=== PATIENT | male | born 1955 | race Hispanic/Latino ===

== ENCOUNTER 2022-08-06 01:47 | Emergency (ER) | payer MEDICARE, OTHER ==
[~2022-08-06] VITALS: Ht 182.9 cm; Wt 133.8 kg
[2022-08-06 02:14] VITALS: BP 135/89
[2022-08-06 02:19] LABS: APPEARANCE,URINE CLEAR (CLEAR); BILIRUBIN,URINE NEGATIVE (NEGATIVE); COLOR,URINE LIGHT-YELLOW (YELLOW); GLUCOSE, URINE (UA) NEGATIVE (NEGATIVE); KETONES,URINE NEGATIVE (NEGATIVE); LEUKOCYTE ESTERASE ,URINE 75 Leu/uL (NEGATIVE); NITRATE,URINE NEGATIVE (NEGATIVE); OCCULT BLOOD,URINE LARGE (NEGATIVE); PH,URINE 5.5 (5.0-8.0); PROTEIN,URINE NEGATIVE (NEGATIVE); UROBILINOGEN,URINE 0.2 mg/dL (0.2-1.0)
[2022-08-06 02:28] LABS: MUCUS,URINE RARE LPF (None Seen); WBC,URINE 26-50 /HPF (0-1)
[2022-08-06] MEDS ORDERED: CEFTRIAXONE 1G VIAL IVPB ONE (03:00)
[2022-08-06] MEDS ORDERED: CEFU500T67 PO (03:03)
== END 2022-08-06 03:24 | disposition home or self-care (01) ==
LOC: EDH 01:47
DX: N39.0 Urinary tract infection, site not specified (principal); R33.9 Retention of urine, unspecified; E11.9 Type 2 diabetes mellitus without complications; E78.00 Pure hypercholesterolemia, unspecified; I10 Essential (primary) hypertension
CPT/HCPCS: 99283; 87088; 81001; 96372; J0696